=== PATIENT | female | born 1950 | race Caucasian/White ===

== ENCOUNTER 2020-02-21 18:37 | Emergency (ER) | payer OTHER ==
[~2020-02-21] VITALS: Ht 162.6 cm; Wt 119.8 kg
[2020-02-21] MEDS ORDERED: LASIX 80 MG TAB80 MG PO (19:27)
[2020-02-21] MEDS ORDERED: SPIRONOLACTONE50 MG PO (19:27)
[2020-02-21] MEDS ORDERED: ALLOPURINOL 10100 M3 PO (19:28)
[2020-02-21] MEDS ORDERED: CARDIZEM120 MG PO (19:28)
[2020-02-21] MEDS ORDERED: ALTACE2.5 MG PO (19:29)
[2020-02-21] MEDS ORDERED: ANIMAL CHEWS1 EAC1 PO (19:29)
[2020-02-21] MEDS ORDERED: NOVOLIN N100 UNIT/3 SUBQ (19:29)
[2020-02-21] MEDS ORDERED: VITAMIN D310 MC2 PO (19:29)
[2020-02-21] MEDS ORDERED: NEURONTIN300 MG PO ×2 (19:30→21:00)
[2020-02-21] MEDS ORDERED: LEVO-T75 MCG PO (19:30)
[2020-02-21 19:54] LABS: ABSOLUTE NEUTROPHILS 8.5 thou/uL (1.4-8.2); BASOPHILS 0.4 % (0.0-2.0); EOSINOPHILS 0.7 % (0.0-3.0); HEMATOCRIT 30.9 % (37.0-47.0); LYMPHOCYTES 6.6 % (24.0-44.0); MCH 31.1 pg (26.0-34.0); MCHC 32.5 g/dL (28.0-37.0); MCV 95.8 fL (80.0-100.0); MONOCYTES 5.2 % (1.0-8.0); PLATELET COUNT 202 thou/uL (150-400); POLYS 87.1 % (36.0-66.0); RBC 3.22 mil/uL (4.20-5.00); RDW 15.8 % (10.5-14.5); WBC 9.8 thou/uL (4.0-11.0)
[2020-02-21 20:01] LABS: PLATELET ESTIMATE NORMAL
[2020-02-21 20:04] LABS: CALCIUM 9.5 mg/dL (8.5-10.1); CREATININE 2.8 mg/dL (0.6-1.0); POTASSIUM 5.9 mmol/L (3.5-5.1)
[2020-02-21 20:06] LABS: ALBUMIN 3.4 g/dL (3.4-5.0); TOTAL BILIRUBIN 0.4 mg/dL (0.2-1.0); TOTAL PROTEIN 8.4 g/dL (6.4-8.2)
[2020-02-21 20:08] LABS: LARGE PLATELETS RARE
[2020-02-21] MEDS ORDERED: IRON325 M1 PO (21:00)
[2020-02-21 21:17] VITALS: BP 124/74
[2020-02-22] MEDS ORDERED: PERCOCET 5-3251 EACH PO (22:04)
== END 2020-02-21 21:17 | disposition home or self-care (01) ==
LOC: ER 18:37
PROVIDERS: Emergency Medicine
DX: G25.81 Restless legs syndrome (principal); I13.0 Hypertensive heart and chronic kidney disease with heart failure and stage 1 through stage 4 chronic kidney disease, or unspecified chronic kidney disease; E11.22 Type 2 diabetes mellitus with diabetic chronic kidney disease; N18.3 Chronic kidney disease, stage 3 (moderate); Z79.899 Other long term (current) drug therapy; Z79.4 Long term (current) use of insulin

== ENCOUNTER 2020-02-22 19:57 | Emergency (ER) | payer OTHER ==
[~2020-02-22] VITALS: Ht 162.6 cm; Wt 119.8 kg
[~2020-02-22 19:57] MED LIST: ALLOPURINOL 10100 M3 PO; ALTACE2.5 MG PO; ANIMAL CHEWS1 EAC1 PO; CARDIZEM120 MG PO; IRON325 M1 PO; LASIX 80 MG TAB80 MG PO; LEVO-T75 MCG PO; NEURONTIN300 MG PO; NOVOLIN N100 UNIT/3 SUBQ; SPIRONOLACTONE50 MG PO; VITAMIN D310 MC2 PO
[2020-02-22] MEDS ORDERED: PERCOCET 5-3251 EACH PO (22:04)
[2020-02-22 22:05] VITALS: BP 152/50
== END 2020-02-22 22:11 | disposition home or self-care (01) ==
LOC: ER 19:57
DX: S32.2XXA Fracture of coccyx, initial encounter for closed fracture (principal); S00.03XA Contusion of scalp, initial encounter; M79.7 Fibromyalgia; I13.0 Hypertensive heart and chronic kidney disease with heart failure and stage 1 through stage 4 chronic kidney disease, or unspecified chronic kidney disease; E11.22 Type 2 diabetes mellitus with diabetic chronic kidney disease; N18.3 Chronic kidney disease, stage 3 (moderate); I50.9 Heart failure, unspecified; Z88.8 Allergy status to other drugs, medicaments and biological substances; Z79.899 Other long term (current) drug therapy; Z95.0 Presence of cardiac pacemaker; Z79.4 Long term (current) use of insulin; W01.198A Fall on same level from slipping, tripping and stumbling with subsequent striking against other object, initial encounter; Y93.01 Activity, walking, marching and hiking; Y92.89 Other specified places as the place of occurrence of the external cause; Y99.9 Unspecified external cause status

== ENCOUNTER 2020-03-03 22:58 | Inpatient (IN) | payer OTHER ==
[~2020-03-03] VITALS: Ht 162.6 cm; Wt 134.3 kg
[~2020-03-03 22:58] MED LIST changes: +PERCOCET 5-3251 EACH PO
[2020-03-03 23:00] VITALS: BP 98/27
[2020-03-03 23:34] LABS: ABSOLUTE NEUTROPHILS 9.6 thou/uL (1.4-8.2); BASOPHILS 0.3 % (0.0-2.0); EOSINOPHILS 0.3 % (0.0-3.0); HEMOGLOBIN 8.6 gm/dL (12.0-15.0); MCH 30.4 pg (26.0-34.0); MCHC 31.8 g/dL (28.0-37.0); MCV 95.7 fL (80.0-100.0); PLATELET COUNT 217 thou/uL (150-400); POLYS 87.4 % (36.0-66.0); RBC 2.82 mil/uL (4.20-5.00); RDW 16.5 % (10.5-14.5); WBC 10.9 thou/uL (4.0-11.0)
[2020-03-03 23:54] LABS: ANION GAP 15 mmol/L (7-16); BUN 229 mg/dL (7-18); CALCIUM 9.2 mg/dL (8.5-10.1); CHLORIDE 102 mmol/L (98-107); CO2 17 mmol/L (21-32); CREATININE 4.9 mg/dL (0.6-1.0); DIRECT BILIRUBIN 0.1 mg/dL (<0.1-0.2); GLUCOSE 102 mg/dL (74-106); SGOT 22 U/L (15-37); SGPT 21 U/L (30-65); SODIUM 134 mmol/L (136-145); TOTAL BILIRUBIN 0.3 mg/dL (0.2-1.0); TOTAL PROTEIN 7.9 g/dL (6.4-8.2); TROPONIN-I <0.06 ng/mL (<0.06)
[2020-03-03 23:57] LABS: POTASSIUM 7.2 mmol/L (3.5-5.1)
[2020-03-04] VITALS (61 sets, daily range): BP systolic 62–201; BP diastolic 14–178
[2020-03-04 01:13] LABS: URINE BILIRUBIN NEGATIVE (Negative); URINE BLOOD NEGATIVE (Negative); URINE CLARITY CLEAR; URINE COLOR YELLOW; URINE GLUCOSE-RANDOM* NEGATIVE (Negative); URINE KETONES TRACE (Negative); URINE LEUKOCYTES-REFLEX TRACE (Negative); URINE NITRITE-REFLEX NEGATIVE (Negative); URINE PROTEIN (DIPSTICK) NEGATIVE (Negative); URINE SPECIFIC GRAVITY 1.025 (1.005-1.035); URINE UROBILINOGEN 0.2 E.U./dl (0.2-1.0)
--- NOTE | 2020-03-04 02:32 | NUR ---
DR ALMEIDA NOTIFIED AND TALKED WITH DR PIÑA
--- NOTE | 2020-03-04 08:29 | NUR ---
New admit from ER, BP 70s/40s maxed on Levophed gtt, temp 93.5 orally- chidi hagger on. Temperature now 95.3. BP up to 94/[address] Lockhart. Dr. Lockhart notified of pt condition/ situation. New orders given.
[2020-03-04 09:51] LABS: CALCIUM 9.1 mg/dL (8.5-10.1); CREATININE 5.1 mg/dL (0.6-1.0)
[2020-03-04 10:12] LABS: POTASSIUM 7.5 mmol/L (3.5-5.1)
[2020-03-04 16:15] LABS: BE(vivo) -15.3 mmol/L (-2 to +3); HCO3 14.3 mmol/L (22.0-26.0); PCO2 50.9 mmHg (35.0-45.0); sO2 98.8 % (92.0-98.0)
[2020-03-04 16:18] LABS: pH 7.065 (7.360-7.450)
[2020-03-04 20:21] LABS: BE(vivo) -3.9 mmol/L (-2 to +3); HCO3 22.4 mmol/L (22.0-26.0); PCO2 46.5 mmHg (35.0-45.0); PO2 316.3 mmHg (80.0-100.0); sO2 99.7 % (92.0-98.0)
[2020-03-04 20:38] LABS: HEMATOCRIT 24.7 % (37.0-47.0); MCH 30.6 pg (26.0-34.0); MCHC 32.3 g/dL (28.0-37.0); MCV 94.6 fL (80.0-100.0); RBC 2.61 mil/uL (4.20-5.00); RDW 16.5 % (10.5-14.5); WBC 11.5 thou/uL (4.0-11.0)
--- NOTE | 2020-03-04 22:59 | NUR ---
This RN assumed care at 1900 today and received report from FABRICIO Pickett. Patient receiving dialysis and on an FiO2 of 100%. After dialysis, patient had ABG done and had a crtical PO2 of 300, called Dr. Lockhart with results, new orders of 2 amps of Bicarb and FiO2 was decreased from 100% to 50%. Patient satting 99-100% on the monitor and doing well. Pressures maintaining well and patient is weaned off of Levophed gtt. Minimal tremors noted and patient is comofortable on 30 of propofol. No sedation vacation due to patient instability. Also received lab orders from Dr. Lockhart and informed him of patients low temperature of 95.4 F. Restraints are in place and this RN removed thick blood tinged secretions. This RN spoke to Lakesha Morataya, patients friend and DPOA, regarding status at 1930 this evening. Answered all questions and told I would call with any status changes. Will continue to monitor.
[2020-03-05] VITALS (81 sets, daily range): BP systolic 83–150; BP diastolic 25–100
[2020-03-05 04:04] LABS: BE(vivo) -2.7 mmol/L (-2 to +3); HCO3 22.7 mmol/L (22.0-26.0); PCO2 41.8 mmHg (35.0-45.0); PO2 83.1 mmHg (80.0-100.0); pH 7.353 (7.360-7.450); sO2 95.8 % (92.0-98.0)
[2020-03-05 04:16] LABS: ABSOLUTE NEUTROPHILS 11.2 thou/uL (1.4-8.2); BASOPHILS 0.2 % (0.0-2.0); HEMATOCRIT 24.7 % (37.0-47.0); LYMPHOCYTES 1.4 % (24.0-44.0); MCH 30.8 pg (26.0-34.0); MCHC 32.4 g/dL (28.0-37.0); MCV 94.9 fL (80.0-100.0); MONOCYTES 4.2 % (1.0-8.0); PLATELET COUNT 187 thou/uL (150-400); POLYS 94.2 % (36.0-66.0); RDW 16.8 % (10.5-14.5); WBC 11.9 thou/uL (4.0-11.0)
[2020-03-05 04:33] LABS: ALBUMIN 2.5 g/dL (3.4-5.0); PHOSPHORUS 5.4 mg/dL (2.5-4.9); TOTAL BILIRUBIN 0.4 mg/dL (0.2-1.0); TOTAL PROTEIN 6.7 g/dL (6.4-8.2)
[2020-03-05 04:34] LABS: CREATININE 3.4 mg/dL (0.6-1.0); POTASSIUM 4.8 mmol/L (3.5-5.1)
[2020-03-05 04:43] LABS: CALCIUM 8.7 mg/dL (8.5-10.1)
[2020-03-05 05:36] LABS: GLYCOHEMOGLOBIN (HGB A1C) 10.2 % (4.8-5.6)
--- NOTE | 2020-03-05 06:16 | NUR ---
Patient had to be started on Levophed gtt as the night went on. Patient comfortably sedated on Propofol. ABG's approved and patient currently on FiO2 at 50%. OG tube to LIS with green stomach contents. Patient still has small tremors, but does not appear to be in pain. Restraints in place.
[2020-03-05 07:07] LABS: HEPATITIS B SURFACE AG Negative (Negative)
--- NOTE | 2020-03-05 12:45 | NUR ---
>>>0700 Bedside shift report received from hourly shift manager nurse. Care assumed. >>>0800 Assessments done. Pt put on sedation vacation. Is drowsy and restless with tremors. Not following commands. Sedation medication titrated per protocol. Dr Liz rounded on pt. Order to dialyze patient. >>>0930 Dr Bentley rounded, no new orders received. >>>1230 Dialysis nurse at bedside dialysing pt. Pt tolerating procedure.
--- NOTE | 2020-03-05 16:38 | EKG ---
[facility] [place] [address] ELECTROCARDIOGRAM REPORT Name: CONRAD FLEMING Room #: 240-P ADM IN M.R.#: [id number] Admission: 03/04/20 Attend Phys: Earl Bentley MD Discharge: Date of : 50 Report #: [id number] THIS REPORT FOR: cc: Ramana Mcbride MD, Elliott L. MD Lundgren,Toan Alcocer MD [facility] ~ THIS REPORT FOR: //name// [facility] ED Test Date: 2020-03-03 Test Time: 23:52:10 Pat Name: CONRAD FLEMING Department: Room: 240 Gender: F [employer] Trimmer: [id number] : 1950 Requested By: Chikis Frazier Order Number: [id number] MD: Toan Mohamud Measurements Intervals Una Rate: 82 P: 0 TN: 92 QRS: 138 QRSD: 106 T: 24 QT: 380 QTc: 444 Interpretive Statements Sinus rhythm Rightward axis Poor R wave progression No previous ECG available for comparison Electronically Signed On 03-05-2020 16:38:33 CDT by Toan Mohamud [email or web address] <ELECTRONICALLY SIGNED> By: Toan Mohamud MD, [facility] 03/05/20 1638 235 51 Toan Mohamud MD, [facility] /EPI
[2020-03-06] VITALS (70 sets, daily range): BP systolic 113–173; BP diastolic 45–80
[2020-03-06 05:47] LABS: HEMATOCRIT 23.2 % (37.0-47.0); HEMOGLOBIN 7.5 gm/dL (12.0-15.0); MCH 30.8 pg (26.0-34.0); MCHC 32.5 g/dL (28.0-37.0); RBC 2.44 mil/uL (4.20-5.00); RDW 16.6 % (10.5-14.5); WBC 11.9 thou/uL (4.0-11.0)
[2020-03-06 05:55] LABS: ALBUMIN 2.3 g/dL (3.4-5.0); CALCIUM 8.5 mg/dL (8.5-10.1); PHOSPHORUS 4.5 mg/dL (2.5-4.9); POTASSIUM 4.6 mmol/L (3.5-5.1)
[2020-03-06 06:03] LABS: CREATININE 2.2 mg/dL (0.6-1.0)
--- NOTE | 2020-03-06 09:17 | NUR ---
When stabilized, recommend start enteral nutrition of Nepro at 15ml/hr if approved by Renal
--- NOTE | 2020-03-06 15:21 | NUR ---
chart review. honey remains intubated. unable to visit with her. noted per chart, she lives alone in apartment. will cont following as needed for dc needs.
--- NOTE | 2020-03-06 19:14 | NUR ---
ASSUMED CARE AT 0700. SEDATION VACATION PERFORMED. PATIENT WAS NOT ABLE TO FOLLOW COMMANDS AND WAS EXTREMELY AGITATED. [employer]GER WOULD LIKE RENAL TO INITIATE TUBE FEEDINGS. PATIENT CODE STATUS CHANGED TO DNR DUE TO ADVANCE DIRECTIVE BEING SENT TO US. OTHER PROVIDERS AWARE OF CODE STATUS CHANGE. NEED PLAN OF CARE TO BE UPDATED. DR. MCGOWAN CONSULTED AND TALKED TO DPOA. VENTILATOR SETTINGS UNCHANGED. NO BM. ADEQUATE UOP. AFEBRILE. PROPOFOL GTT IN PLACE. PATIENT AND DPOA UPDATED AND EDUCATED ON PATIENT STATUS AND PLAN OF CARE. ENHANCED PRECAUTIONS DC'D DUE TO SECOND NEGATIVE COVID SWAB. WOUND CARE CONSULTED FOR UNDOCUMENTED LOWER EXTREMITY WOUNDS. PATIENT NOT PROGRESSING TOWARDS THE PLAN OF CARE.
[2020-03-07] VITALS (21 sets, daily range): BP systolic 98–148; BP diastolic 40–63
--- NOTE | 2020-03-07 01:47 | NUR ---
REPORT GIVEN TO FABRICIO ROQUE. PT TRANSFERED TO ROOM 247.
--- NOTE | 2020-03-07 06:00 | NUR ---
REMAINS INTUBATED AND SEDATED WITH PROPOFOL GTT AT 50 MCG. SINUS RHYTHM AFEBRILE FOLLOWS NO COMMANDS. 800 CC UO THIS SHIFT. RIGHT JUG DIALYSIS CATH INTACT. DR MCGOWAN CONSULTED FOR TODAY. PT REMAINS A DNR. WILL CONT TO MONITOR
[2020-03-07 06:01] LABS: HEMATOCRIT 23.7 % (37.0-47.0); HEMOGLOBIN 7.6 gm/dL (12.0-15.0); MCH 30.5 pg (26.0-34.0); MCHC 32.2 g/dL (28.0-37.0); MCV 94.9 fL (80.0-100.0); RBC 2.5 mil/uL (4.20-5.00); RDW 16.4 % (10.5-14.5); WBC 12.1 thou/uL (4.0-11.0)
[2020-03-07 06:15] LABS: CALCIUM 9.3 mg/dL (8.5-10.1); CREATININE 2.2 mg/dL (0.6-1.0); POTASSIUM 4.1 mmol/L (3.5-5.1)
--- NOTE | 2020-03-07 08:00 | NUR ---
SPOKE WITH CHARO GAY DPOA. SHE IS WAITING FOR DR. MCGOWAN TO CALL HERE ABOUT THE TIME LINE. STATES PT WOULD NOT WANT TO LIVE ON MACHINES. EMOTIONAL SUPPORT GIVEN.
--- NOTE | 2020-03-07 10:12 | NUR ---
cm spoke with friend samantha, also can talk with brother michael buckner, we both her dpoa. she never wanted to be on vent so a dr going to see when can stop the vent, possible going to discuss comfort care. will cont following as needed for dc needs.
--- NOTE | 2020-03-07 10:16 | NUR ---
Pt STILL REMAINS INTUBATED AND SEDATED ON PROPOFOL. Pt STILL NOT FOLLOWING COMMANDS PER NSG. DR MCGOWAN CONSULTED REGARDING PALLITATIVE CARE PATH. WILL PLACE Pt ON HOLD. PLEASE REORDER P.T. EVAL WHEN Pt BECOMES MEDICALLY APPRO- PRIATE. THANK YOU.
--- NOTE | 2020-03-07 13:50 | NUR ---
FAILED CPAP TRIAL . DR. MCGOWAN NOTIFIED. MD WILL CALL FAMILY TO SEE WHEN THEY WANT TO COME IN TO WITHDRAW CARE.
--- NOTE | 2020-03-07 19:00 | NUR ---
DR. MCGOWAN IS TALKING TO FAMILY/ CALLED THIS RN TO GIVE= FINAL ORDER TO EXTUBATE. SEE MORPHINE ORDERS.
--- NOTE | 2020-03-07 20:34 | NUR ---
PT MOVING TOWARDS PALLITIVE CARE. EMOTIONAL SUPPORT GIVEN TO PT SON AND FRIEND.
--- NOTE | 2020-03-07 20:45 | NUR ---
PER DR. MCGOWAN PT NOW COMFORT CARE. ORDERS HAVE BEEN RECEIVED. MORPHINE GTT STARTED. RT - LOKI AT BEDSIDE TO EXTUBATED. PT EXTUBATED AT 2032, AND PLACED ON 6L NC PER DR. MCGOWAN. CHARO (FRIEND) NOW AT BEDSIDE. ALICE (BROTHER) UPDATED.
--- NOTE | 2020-03-07 23:15 | NUR ---
PT AT 2207. TIME OF VERIFIED BY TWO RN'S. MTN NOTIFIED WITHIN 60 MIN TIME FRAME. ALL ATTENDING PHYSICANS NOTIFIED. DEPARTMENT CHAIR NOTIFIED. CORAZON TORO NOTIFIED. ALICE (BROTHER) AND CHARO (FRIEND) NOTIFIED.
--- NOTE | 2020-03-09 18:32 | HC ---
[facility] [place] [address] CONSULTATION Name: CONRAD FLEMING Room #: [facility] IN M.R.#: [id number] Admission: 03/04/20 Attend Phys: Earl Bentley MD Discharge: 03/07/20 Date of : 50 Report #: [id number] THIS REPORT FOR: cc: Ramana Mcbride MD, Elliott L. MD Al-Absi,Alisa Blanca MD ~ CC: Earl Mcbride DATE OF SERVICE: 03/04/2020 REASON FOR CONSULTATION: Hyperkalemia. REASON FOR PRESENTATION: Weakness. HISTORY OF PRESENT ILLNESS: Obtained from the medical chart. The patient is not able to provide me with any history. She is very confused. She is disoriented. It does look like that the patient has creatinine value as high as 2.9 in the past. She presented with weakness and was found to have a potassium of 7.2. Apparently, the patient is maintained on numerous medications that might contribute to hyperkalemia including spironolactone. She was admitted to the ICU for further evaluation and management. She was extremely hypotensive. She is being ruled out for COVID-19. Further details are not available given the patient's current mental status. PAST MEDICAL HISTORY: 1. Pulmonary hypertension. 2. Diabetes mellitus. 3. Fibromyalgia. 4. CKD. PAST SURGICAL HISTORY: Pacemaker insertion. FAMILY HISTORY: Unobtainable given the patient's current mental status. SOCIAL HISTORY: Unobtainable given the patient's current mental status. REVIEW OF SYSTEMS: Unobtainable given the patient's current mental status. HOME MEDICATIONS: Included: 1. Ferrous sulfate. 2. Oxycodone. 3. Gabapentin. 4. Spironolactone. 5. Ramipril. 6. Lasix. [facility] [address] [place] [address] CONSULTATION Name: CONRAD FLEMING Room #: 247-P DIS IN [facility].#: [id number] Admission: 03/04/20 Attend Phys: Earl Bentley MD Discharge: 03/07/20 Date of : 50 Report #: [id number] PHYSICAL EXAMINATION: GENERAL: She is disoriented, confused. VITAL SIGNS: Blood pressure is 99/49, pulse rate is 80. HEAD AND NECK: No jugular venous distention. CHEST: Decreased air entry bilaterally. CARDIOVASCULAR: No rub detected. ABDOMEN: Soft. LOWER EXTREMITIES: Trace edema. LABORATORY VALUES: Revealed the following: Sodium is 134, potassium 7.2, chloride is 102, carbon dioxide is 17, BUN is 229, creatinine is 4.9. Hemoglobin is 8.6. First sample for COVID-19 is negative. Chest x-ray, cardiomegaly with some vascular congestions bilaterally. ASSESSMENT, IMPRESSION AND PLAN: 1. Acute kidney injury. 2. Chronic kidney disease. 3. Hyperkalemia. 4. Hypotension. 5. Appropriate treatment for hyperkalemia had been given in the Emergency Room. I will repeat the potassium level. This seems to be all prerenal acute kidney injury with hyperkalemia due to diuretics, spironolactone, and angiotensin converting enzyme inhibitor. 6. Continue IV fluid. 7. Continue pressors. 8. P.r.n. diuretics. 9. We will continue to follow with the routine management of acute kidney injury, chronic kidney disease including watching electrolytes, urine output, avoiding nephrotoxins. <ELECTRONICALLY SIGNED> By: Alisa Hutton MD 03/09/20 1832 0750 [id number] Alisa Hutton MD /nt
--- NOTE | 2020-03-10 08:10 | HC ---
[facility] [place] [address] CONSULTATION Name: CONRAD FLEMING Room #: 247-P [facility] IN M.R.#: [id number] Admission: 03/04/20 Attend Phys: Earl Bentley MD Discharge: 03/07/20 Date of : 50 Report #: [id number] THIS REPORT FOR: cc: Ramana Mcbride MD, Elliott L. MD Althoff, Jeffrey R. MD ~ CC: Earl Mcbride DATE OF SERVICE: 03/07/2020 CHIEF COMPLAINT: Ulcerations to the left lower extremity. HISTORY OF PRESENT ILLNESS: This is a 69-year-old female patient who I have been asked to see regarding wounds involving the left lower extremity. She apparently presented to the Emergency Department with some increased weakness with falls. She is noted to have worsening renal failure. She has been agitated and argumentative and is not able to provide much information about herself. She is currently in the ICU. PAST MEDICAL HISTORY: Noted for congestive heart failure, pulmonary hypertension, type 2 diabetes mellitus, chronic kidney disease stage 3, fibromyalgia. She is status post permanent pacemaker placement. SOCIAL HISTORY: Negative for tobacco or recreational drug use. She has apparently been ambulatory, using a cane or a walker. FAMILY HISTORY: Unknown. ALLERGIES: To IRON INFUSIONS. MEDICATIONS: Include: 1. Ferrous sulfate. 2. Neurontin. 3. Oxycodone. 4. Spironolactone. 5. Lasix. 6. Allopurinol. 7. Cardizem. 8. Ramipril. 9. Vitamin D3. REVIEW OF SYSTEMS: Not obtainable due to the patient's condition. PHYSICAL EXAMINATION: VITAL SIGNS: At this time include temperature 37.0, pulse 88, respiratory rate [facility] [address] [place] [address] CONSULTATION Name: CONRAD FLEMING Room #: [facility] IN M.R.#: [id number] Admission: 03/04/20 Attend Phys: Earl Bentley MD Discharge: 03/07/20 Date of : 50 Report #: [id number] of 22, blood pressure of 98/44. GENERAL: This is a chronically ill-appearing female patient who is noting decreased level of responsiveness. HEENT: Head is normocephalic. Eyes are closed. LUNGS: Reveal tachypnea. She is diminished. HEART: Regular rhythm without a murmur. ABDOMEN: Soft, obese and nontender. EXTREMITIES: Examination of the extremities demonstrates palpable distal pulses. She has some what appears to be ulceration or abrasion to the left posterior calf as well as the left pretibial region. The patient's distal pulses are difficult to palpate. LABORATORY STUDIES: Include sodium 139, potassium 4.1, chloride 103, CO2 of 26, BUN 69, creatinine 2.2. White blood cell count 12.1 with a hemoglobin of 7.6. CLINICAL IMPRESSION: 1. Acute on chronic hypercapnic respiratory failure. 2. Shock. 3. Congestive heart failure. 4. Encephalopathy. 5. Abrasions to the left lower extremity. RECOMMENDATIONS: At this point in time, these areas I think could be left open to air. We could simply cover them with an iodoform. It might be worthwhile considering vascular Dopplers and if her condition stabilizes, she is being managed by the criminal investigator in the ICU at this time. We will continue to follow and additional inputs as clinically indicated. I appreciate being asked to see her in consultation. <ELECTRONICALLY SIGNED> By: Darion Oseguera MD 03/10/20 0810 1138 1342 Darion Oseguera MD /nt
== END 2020-03-07 22:00 | DRG 208 ==
LOC: ER 22:58 → ICU 03-04 02:25 → EROBS 03-04 02:25 → ICU 03-04 05:03
PROVIDERS: Emergency Medicine; Hospitalist; Internal Medicine Pulmonary Disease; Nurse Practitioner Family; Pediatrics; ADMIT Hospitalist; ATTEND Hospitalist
PROC: 5A1945Z Respiratory Ventilation, 24-96 Consecutive Hours (ICD-10-PCS; principal; 2020-03-04)
PROC: 0BH18EZ Insertion of Endotracheal Airway into Trachea, Via Natural or Artificial Opening Endoscopic (ICD-10-PCS; principal; 2020-03-04)
PROC: 5A1D70Z Performance of Urinary Filtration, Intermittent, Less than 6 Hours Per Day (ICD-10-PCS; 2020-03-04)
PROC: 02HV33Z Insertion of Infusion Device into Superior Vena Cava, Percutaneous Approach (ICD-10-PCS; 2020-03-04)
PROC: B548ZZA Ultrasonography of Superior Vena Cava, Guidance (ICD-10-PCS; 2020-03-04)
DX: J96.21 Acute and chronic respiratory failure with hypoxia (principal); N17.9 Acute kidney failure, unspecified; I13.0 Hypertensive heart and chronic kidney disease with heart failure and stage 1 through stage 4 chronic kidney disease, or unspecified chronic kidney disease; G93.40 Encephalopathy, unspecified; E87.0 Hyperosmolality and hypernatremia; E87.2 Acidosis; E87.5 Hyperkalemia; I95.9 Hypotension, unspecified; J96.22 Acute and chronic respiratory failure with hypercapnia; E86.0 Dehydration; I50.9 Heart failure, unspecified; N18.3 Chronic kidney disease, stage 3 (moderate); E11.22 Type 2 diabetes mellitus with diabetic chronic kidney disease; M79.7 Fibromyalgia; D64.9 Anemia, unspecified; I27.20 Pulmonary hypertension, unspecified; T50.0X5A Adverse effect of mineralocorticoids and their antagonists, initial encounter; Z66 Do not resuscitate; Z51.5 Encounter for palliative care; Z20.828 Contact with and (suspected) exposure to other viral communicable diseases; Y92.89 Other specified places as the place of occurrence of the external cause; Z95.0 Presence of cardiac pacemaker; Z79.4 Long term (current) use of insulin; Z79.899 Other long term (current) drug therapy; Z88.8 Allergy status to other drugs, medicaments and biological substances
CPT/HCPCS: 10078; 32100